=== PATIENT | male | born 1955 | race Caucasian/White ===

== ENCOUNTER → 2017-02-27 | Day surgery (SDC) | payer MEDICARE, OTHER ==
[~2017-02-27] MED LIST: BUPIVACAINE HCL PF 0.5% 30 ML VIAL ONE; CYCL5TAB PO; DIAZ10TA PO; DULC100C PO; HYDR8TAB PO; IOHEXOL 180 MG/ML 20 ML VIAL (for RAD DIAG) EPIDURAL ONE; LEVS0.123 PO; LIDOCAINE HCL 1% 30 ML VIAL INFIL ONE; PROM1SUP9 RECTAL; PROPOFOL 200 MG/20 ML AMP IV ONE; SINE25TA PO; SODIUM CHLORIDE 0.9% 10 ML VIAL ONE; TAMS5CAP PO; TRIAMCINOLONE ACETONIDE 40 MG/ML VIAL NERV BLOCK ONE; VITA100022 PO; VITA100036 PO; ZOFR8TAB PO
--- NOTE | 2017-02-28 13:12 | M6 ---
cc: LINDSEY STALEY M.D. DATE 02/27/2017 DATE OF 1955 PROCEDURE Celiac plexus block. History and physical was completed and signed. Consent was signed. Procedure site was marked. Medications were listed and reconciled. Pain score was recorded. Allergies were noted. Time out was taken. Fluoroscopy time was recorded where applicable. Sedation was administered or directed by Dr. Staley. The patient was given oxygen. The patient was monitored by a registered nurse. Total procedure time was greater than 15 minutes. PROCEDURE NOTE IV was started. Blood pressure cuff, pulse oximeter and EKG were applied. The patient was placed in the prone position on a Elias table, sedated with small amounts of propofol titrated to effect. Vital signs were monitored and remained stable throughout the procedure. The lumbar area was prepped with alcohol and 10% Betadine solution, draped with sterile drapes. Fluoroscopy was used both AP and lateral. The skin was infiltrated just lateral to the first lumbar vertebra approximately 5 cm on each side. Then a 20-gauge, 6-inch Chiba needle was advanced along the lateral border of the first lumbar vertebra on each side. As the needle approached the anterior vertebral border, Omnipaque dye was injected and seen to spread in a typical striated fashion in the psoas muscle. Then the needle was slowly advanced using fluoroscopic guidance and the [id number] technique. As the needle penetrated the anterior psoas fascia, Omnipaque dye was injected and seen to spread in a typical blotchy pattern in the retroperitoneal space. There was no washout to the injectable dye. At this point the patient was given 15 mL of Marcaine 0.375% and 40 mg of Kenalog on each side. Following this the patient was taken to the recovery room with stable vital signs, neurologically intact. W. MD RINA Blackman/LIBRA /9:11 AM /1:08 PM
== END | disposition home or self-care (01) ==
LOC: PHSDC 07:50
PROVIDERS: ATTEND Pain Medicine Interventional Pain Medicine
DX: R10.9 Unspecified abdominal pain (principal)
CPT/HCPCS: 64530; 99152; J3301; Q9965

== ENCOUNTER 2017-10-23 10:51 | Emergency (ER) | payer MEDICARE, OTHER ==
[~2017-10-23] VITALS: Ht 180.3 cm; Wt 65.0 kg
[~2017-10-23 10:51] MED LIST changes: -BUPIVACAINE HCL PF 0.5% 30 ML VIAL ONE; +CARB25TA9 PO; +CREON24 PO; -CYCL5TAB PO; -DULC100C PO; +GETGO ROLLING W1 MI1; -HYDR8TAB PO; -IOHEXOL 180 MG/ML 20 ML VIAL (for RAD DIAG) EPIDURAL ONE; -LEVS0.123 PO; -LIDOCAINE HCL 1% 30 ML VIAL INFIL ONE; +PANT20 PO; +PERI PO; -PROM1SUP9 RECTAL; -PROPOFOL 200 MG/20 ML AMP IV ONE; -SINE25TA PO; -SODIUM CHLORIDE 0.9% 10 ML VIAL ONE; +TAMS0.4C4 PO; -TAMS5CAP PO; -TRIAMCINOLONE ACETONIDE 40 MG/ML VIAL NERV BLOCK ONE; -VITA100022 PO; -VITA100036 PO; -ZOFR8TAB PO
[2017-10-23 10:59] VITALS: BP 132/79; PULSE 73; RESP 18; TEMP 98.2; O2SAT 99
--- NOTE | 2017-10-23 11:09 | PD ---
HPI Chief Complaint: Neuro Symptoms/ Deficits Time Seen by Provider: 10:55 Travel History International Travel<30 days: No Contact w/Intl Traveler<30days: No Traveled to known affect area: No History of Present Illness HPI Patient is a 62-year-old male with a history of recent hemorrhagic stroke status post craniotomy presents emergency department for evaluation of "the room STARTS spinning". Patient states that this is a new symptom for him denies any new weakness but he has his to bring him to the hospital. When I ask if he woke up with these symptoms as today he says possibly, he cannot really expand further on 1 his symptoms actually started he states possibly midmorning. Difficult historian. His arrives and states that he did indeed have craniotomy August 25, he still has some mild edema on his brain according to her. She states that he has a history of Parkinson's with dementia is nearing "the end" she states that he asked her to bring him to the hospital and she was applied stick on her his request. He is not on any blood thinners, she cannot expand further on when his symptoms actually started. He states that he has a tremor on his right upper extremity "at rest" but now it's "at rest" demonstrating some mild confusion. No chest pain no shortness of breath no abdominal pain nausea vomiting no head injury. PFSH Past Medical History Arthritis: No Asthma: No Autoimmune Disease: No Anxiety: Yes Depression: Yes Heart Rhythm Problems: No Cancer: No Cardiovascular Problems: No High Cholesterol: No Chemotherapy: No Chest Pain: No Congestive Heart Failure: No COPD: No Cerebrovascular Accident: Yes Diabetes: No Diminished Hearing: No Endocrine: No GERD: Yes Genitourinary: No Hepatitis: No Hiatal Hernia: No Immune Disorder: No Kidney Stones: No Musculoskeletal: No Neurologic: Yes Parkinson's Disease: Yes Psychiatric: No Reproductive: Yes Respiratory: No Migraines: No Pancreatitis: Yes (chronic since 2005/[facility] scope) Radiation Therapy: No Renal Failure: No Seizures: No Sickle Cell Disease: No Sleep Apnea: No Thyroid Disease: No Ulcer: No Past Surgical History Abdominal Surgery: Yes (RECENT PLEXUS NERVE BLOCK x10) AICD: No Arteriovenous Shunt: No Cardiac Surgery: No Ear Surgery: No Endocrine Surgery: No Eye Surgery: No Genitourinary Surgery: No Insulin Pump: No Joint Replacement: Yes (BILATERAL KNEES) Oral Surgery: Yes (TONSILLECTOMY) Pacemaker: No Thoracic Surgery: Yes (SPONT. PNEUMOTHORAX) Tonsillectomy: Yes Other Surgery: Yes (chest tubes spont pneumo on numerous occasions) Social History Alcohol Use: No Tobacco Use: No Substance Use: No Allergies-Medications (Allergen,Severity, Reaction): Coded Allergies: No Known Allergies (Verified Adverse Reaction, Unknown, 10/23/17) Reported Meds & Prescriptions Reported Meds & Active Scripts Active Gnp Senna Plus 8.6-50 mg (Sennosides-Docusate Sodium) 8.6 Mg-50 Mg Tab 1 Tab PO BID PRN Protonix (Pantoprazole Sodium) 20 Mg Tab 20 Mg PO DAILY Tamsulosin (Tamsulosin HCl) 0.4 Mg Cap 0.4 Mg PO HS Creon (Amylase/Lipase/Protease) 24,000-76,000-120,000 Units Cap 3 Cap PO TIDPC Carbidopa-Levodopa 25-100 Mg Tab 2 Tab PO QID 30 Days Walker Rolling/GetGo (Device) 1 Mis Mis Ea .ROUTE DIRECTED Reported Diazepam 10 Mg Tab 20 Mg PO HS Review of Systems Except as stated in HPI: all other systems reviewed are Neg Physical Exam Narrative GENERAL: Well-developed well-nourished, no obvious distress, exhibiting a tremor slow and non-clonic not representing a seizure in the right upper extremity. SKIN: Focused skin assessment warm/dry. Clean dry and intact surgical wound of the left intraparietal scalp, healing quite well. HEAD: Healing surgical wound as above otherwise atraumatic. Normocephalic. EYES: Pupils equal and round. No scleral icterus. No injection or drainage. ENT: No nasal bleeding or discharge. Mucous membranes pink and moist. NECK: Trachea midline. No JVD. CARDIOVASCULAR: Regular rate and rhythm. No murmur appreciated. RESPIRATORY: No accessory muscle use. Clear to auscultation. Breath sounds equal bilaterally. GASTROINTESTINAL: Abdomen soft, non-tender, nondistended. Hepatic and splenic margins not palpable. MUSCULOSKELETAL: No obvious deformities. No clubbing. No cyanosis. No edema. NEUROLOGICAL: Awake and alert mildly confused, cranial nerves II through XII are grossly intact. Patient states is difficult for him to open his eyes but he is able to do so and following with extraocular movements. Coarse tremor as described above in the right upper extremity. She states this is baseline. 4- 5 metalizing supervisor strength on the right patient states is baseline, 5 out of 5 strength in the remaining 3 extremities. PSYCHIATRIC: Appropriate mood and affect; insight and judgment normal. Data Data Last Documented VS Vital Signs Date Time Temp Pulse Resp B/P (MAP) Pulse Ox O2 Delivery O2 Flow Rate FiO2 10/23/17 14:47 10/23/17 13:30 68 16 100 Room Air 10/23/17 10:59 98.2 Orders Orders Electrocardiogram (10/23/17 11:02) Complete Blood Count With Diff (10/23/17 11:02) Comprehensive Metabolic Panel (10/23/17 11:02) Prothrombin Time / Inr (Pt) (10/23/17 11:02) Act Partial Throm Time (Ptt) (10/23/17 11:02) Troponin I (10/23/17 11:02) Urinalysis - C+S If Indicated (10/23/17 11:02) Ct Brain W/O Iv Contrast(Rout) (10/23/17 11:02) Blood Glucose (10/23/17 11:02) Ecg Monitoring (10/23/17 11:02) Iv Access Insert/Monitor (10/23/17 11:02) Oximetry (10/23/17 11:02) Sodium Chloride 0.9% Flush (Ns Flush) (10/23/17 11:15) Ondansetron Inj (Zofran Inj) (10/23/17 11:11) Ondansetron Inj (Zofran Inj) (10/23/17 12:45) Diphenhydramine Inj (Benadryl Inj) (10/23/17 13:15) Prochlorperazine Inj (Compazine Inj) (10/23/17 13:15) Ed Discharge Order (10/23/17 14:07) Labs Laboratory Tests Test 10/23/17 11:10 White Blood Count 7.7 TH/MM3 Red Blood Count 4.16 MIL/MM3 Hemoglobin 12.8 GM/DL Hematocrit 38.4 % Mean Corpuscular Volume 92.2 FL Mean Corpuscular Hemoglobin 30.8 PG Mean Corpuscular Hemoglobin Concent 33.4 % Red Cell Distribution Width 13.3 % Platelet Count 167 TH/MM3 Mean Platelet Volume 10.3 FL Neutrophils (%) (Auto) 79.1 % Lymphocytes (%) (Auto) 13.2 % Monocytes (%) (Auto) 5.7 % Eosinophils (%) (Auto) 1.7 % Basophils (%) (Auto) 0.3 % Neutrophils # (Auto) 6.1 TH/MM3 Lymphocytes # (Auto) 1.0 TH/MM3 Monocytes # (Auto) 0.4 TH/MM3 Eosinophils # (Auto) 0.1 TH/MM3 Basophils # (Auto) 0.0 TH/MM3 CBC Comment DIFF FINAL Differential Comment Prothrombin Time 10.7 SEC Prothromb Time International Ratio 1.1 RATIO Activated Partial Thromboplast Time 24.1 SEC Blood Urea Nitrogen 13 MG/DL Creatinine 0.87 MG/DL Random Glucose 97 MG/DL Total Protein 7.0 GM/DL Albumin 3.4 GM/DL Calcium Level 8.9 MG/DL Alkaline Phosphatase 49 U/L Aspartate Amino Transf (AST/SGOT) 13 U/L Alanine Aminotransferase (ALT/SGPT) LESS THAN 6 U/L Total Bilirubin 0.3 MG/DL Sodium Level 138 MEQ/L Potassium Level 3.9 MEQ/L Chloride Level 101 MEQ/L Carbon Dioxide Level 33.0 MEQ/L Anion Gap 4 MEQ/L Estimat Glomerular Filtration Rate 89 ML/MIN Troponin I LESS THAN 0.02 NG/ML MDM Medical Decision Making Medical Screen Exam Complete: Yes Emergency Medical Condition: Yes Differential Diagnosis dizziness, headache, postsurgical headache, intracranial hemorrhage, electrolyte abnormality, dehydration. Narrative Course Patient roomed in emergency department, history of Parkinson's disease and at neurologic baseline according to his , headache was treated Benadryl and Compazine, patient feeling better he is a in the emergency department would like to go home to follow-up with his neurologist. He is stable to do so this time, I did offer him admission to the hospital but at this time he would rather go home and follow up outpatient. Diagnosis Primary Impression: Headache Additional Impression: Dizziness Disposition: 01 DISCHARGE HOME Condition: Stable Cam Hernandez MD Oct 23, 2017 11:09
[2017-10-23] MEDS ORDERED: ONDANSETRON HCL 4 MG/2 ML VIAL ONE (11:11)
[2017-10-23 11:13] VITALS: O2SAT 98
[2017-10-23] MEDS ORDERED: SODIUM CHLORIDE 0.9% FLUSH 10 ML FLUSH IV FLUSH PRN (11:15)
[2017-10-23 11:42] LABS: AUTOMATED NEUTROPHIL # 6.1 TH/MM3 (1.8-7.7); BASOPHIL % 0.3 % (0.0-2.0); EOSINOPHIL # 0.1 TH/MM3 (0-0.4); EOSINOPHIL % 1.7 % (0.0-4.0); HEMATOCRIT 38.4 % (39.0-51.0); HEMOGLOBIN 12.8 GM/DL (13.0-17.0); LYMPH % 13.2 % (9.0-44.0); MEAN CELL VOLUME 92.2 FL (80.0-100.0); MEAN CORPUSCULAR HEMOGLOBIN 30.8 PG (27.0-34.0); MEAN CORPUSCULAR HGB CONC 33.4 % (32.0-36.0); MEAN PLATELET VOLUME 10.3 FL (7.0-11.0); MONO % 5.7 % (0.0-8.0); MONOCYTE # 0.4 TH/MM3 (0-0.9); NEUT % 79.1 % (16.0-70.0); PLATELET COUNT 167 TH/MM3 (150-450); RED BLOOD COUNT 4.16 MIL/MM3 (4.50-5.90); RED CELL DISTRIBUTION WIDTH 13.3 % (11.6-17.2); WHITE BLOOD COUNT 7.7 TH/MM3 (4.0-11.0)
[2017-10-23 11:50] LABS: INTERNATIONAL NORMALIZED RATIO 1.1 RATIO; PROTHROMBIN TIME - PATIENT 10.7 SEC (9.8-11.6)
[2017-10-23 11:59] LABS: ALBUMIN 3.4 GM/DL (3.4-5.0); AST (GOT) 13 U/L (15-37); BLOOD UREA NITROGEN 13 MG/DL (7-18); CALCIUM 8.9 MG/DL (8.5-10.1); CHLORIDE 101 MEQ/L (98-107); CREATININE 0.87 MG/DL (0.60-1.30); GLOMERULAR FILTRATION RATE 89 ML/MIN (>89); GLUCOSE,RANDOM 97 MG/DL (74-106); SODIUM (NA) 138 MEQ/L (136-145)
[2017-10-23 12:01] LABS: ALT (GPT) LESS THAN 6 U/L (12-78)
[2017-10-23 12:04] LABS: ALKALINE PHOSPHATASE 49 U/L (45-117); TOTAL BILIRUBIN ADULT 0.3 MG/DL (0.2-1.0); TROPONIN I LESS THAN 0.02 NG/ML (0.02-0.05)
--- NOTE | 2017-10-23 12:21 | RADRPT ---
EXAM DATE/TIME: 10/23/2017 11:44 [place] COMPARISON: No previous studies available for comparison. INDICATIONS : Altered mental status. RADIATION DOSE: 35.46 CTDIvol (mGy) MEDICAL HISTORY : Parkinson's. CVA. SURGICAL HISTORY : Craniotomy. ENCOUNTER: Initial ACUITY: 1 day PAIN SCALE: 0/10 LOCATION: cranial TECHNIQUE: Multiple contiguous axial images were obtained of the head. Using automated exposure control and adj ustment of the mA and/or kV according to patient size, radiation dose was kept as low as reasonably a chievable to obtain optimal diagnostic quality images. DICOM format image data is available electro nically for review and comparison. FINDINGS: CEREBRUM: The ventricles are normal for age. No evidence of midline shift, mass lesion, hemorrhage or acute in farction. No extra-axial fluid collections are seen. POSTERIOR FOSSA: The cerebellum and brainstem are intact. The 4th ventricle is midline. The cerebellopontine angle i s unremarkable. EXTRACRANIAL: The visualized portion of the orbits is intact. SKULL: The calvaria is intact. No evidence of skull fracture. Evidence for previous surgery left upper vul va region. Presumed sebaceous cyst left occipital region CONCLUSION: Negative for acute process. Leonardo Rodriguez MD FACR on October 23, 2017 at 12:19 Board Certified Radiologist. This report was verified electronically.
[2017-10-23] MEDS ORDERED: ONDANSETRON HCL 4 MG/2 ML VIAL IV PUSH ONE (12:45)
[2017-10-23] MEDS ORDERED: diphenhydrAMINE HCL 50 MG/ML VIAL IV PUSH ONE (13:15)
[2017-10-23] MEDS ORDERED: PROCHLORPERAZINE INJ 10 MG/2 ML VIAL IV PUSH ONE (13:15)
[2017-10-23 13:30] VITALS: BP 128/87; PULSE 68; RESP 16; O2SAT 100
--- NOTE | 2017-10-24 17:08 | EKG ---
Date Performed: 10/23/2017 Time Performed: 11:16:47 PTAGE: 62 years EKG: Sinus rhythm WITH OCCASIONAL SUPRAVENTRICULAR PREMATURE COMPLEXES BORDERLINE ECG NO PREVIOUS TRACING DOCTOR: Tracie Bowers Interpretating Date/Time 10/24/2017 17:08:01
== END 2017-10-23 14:55 | disposition home or self-care (01) ==
LOC: NEPC 10:51
DX: R51 Headache (principal); R42 Dizziness and giddiness; G20 Parkinson's disease; F02.80 Dementia in other diseases classified elsewhere, unspecified severity, without behavioral disturbance, psychotic disturbance, mood disturbance, and anxiety; F41.9 Anxiety disorder, unspecified; F32.9 Major depressive disorder, single episode, unspecified; K21.9 Gastro-esophageal reflux disease without esophagitis; K86.1 Other chronic pancreatitis; Z86.73 Personal history of transient ischemic attack (TIA), and cerebral infarction without residual deficits
CPT/HCPCS: 70450; 80053; 84484; 85025; 85610; 85730; 93005; 96374; 96375; 99285; J0780; J1200; J2405

== ENCOUNTER 2018-05-01 09:51 | Inpatient (IN) ==
--- NOTE | 2018-05-01 10:57 | ED ---
HPI General Chief Complaint: Psychiatric Symptoms Stated Complaint: psych eval/evac Time Seen by Provider: 05/01/18 10:37 Source: patient Mode of arrival: EMS Limitations: altered mental status History of Present Illness HPI Narrative: The patient is a 62-year-old male who presents to the emergency department via EMS as a Hook act from [facility] for aggressive behavior. The patient is not oriented to place, month, or year. He is oriented to name. The patient states that somebody try to take his backpack earlier today, he told him they cannot take the backpack and that the physician at the facility placed the worker who took his backpack on work release. The patient states he was then headed north when he somehow was apprehended. The patient is obviously delusional and unable to provide any insight into his current medical problems. I asked the patient [facility], he states it is because he has difficulty ambulating. He denies any current headache, chest pain, shortness breath, nausea, vomiting, or abdominal pain. However, patient is a somewhat limited historian. MD complaint: altered mental status Onset (ago): hour(s) Duration: constant Relieving factors: none Exacerbating factors: none Related Data Home Medications Medication Instructions Recorded Confirmed haloperidol lactate [Haldol] 5 mg IM Q4-8H PRN 05/01/18 05/01/18 hydromorphone [Dilaudid] 4 mg PO Q4-6H PRN MDD 4 05/01/18 05/01/18 lorazepam [Ativan] 1 mg PO BID 05/01/18 05/01/18 midazolam 4 mg PO 05/01/18 Allergies Allergy/AdvReac Type Severity Reaction Status Date / Time No Known Allergies Unknown Uncoded 10/23/17 10:58 Review of Systems ROS Unobtainable unobtainable due to mental condition Cardiovascular Denies chest pain Respiratory Denies dyspnea Gastrointestinal Denies abdominal pain, Denies nausea and Denies vomiting Neurologic Reports behavioral changes Psychiatric Reports confusion, Reports hallucinations, Denies homicidal ideation and Denies suicidal ideation PMFSH Medical History Medical History Colloid cyst of brain (Acute) Colloid cyst of brain (Acute) Failure to thrive (Acute) Hospice care patient (Acute) Pain, chronic (Acute) Pancreatitis, chronic (Acute) Parkinson's disease dementia (Acute) Recent urinary tract infection (Acute) Family History Family History Other Family history of cancer Family history of hypertension Social History Social History Substance History: No History of Abuse, Past History (History of alcohol abuse in past years) and Unable to Obtain Second Hand Smoke Exposure: No Smoking Status: Former smoker (Quit 30 years ago) Tobacco Type: Cigarettes Packs Per Day: 1 Cigarettes Per Day: 20.0 Years Smoked: 25 Pack-Years: 25.00 How Often Do You Have a Drink Containing Alcohol: Unable to Obtain Hx Recent Travel: No Recent Travel in [facility] within the Last 8 Weeks: No Recent Out of Country Travel within the Last 8 Weeks: No Exam Narrative Exam Narrative: GENERAL: Awake, alert, confused 62-year-old male who appears his stated age and is in no acute respiratory distress. Slightly cachectic build. SKIN: Focused skin assessment warm/dry. HEAD: Atraumatic. Normocephalic. EYES: No injection or drainage. ENT: No nasal bleeding or discharge. Mucous membranes pink and moist. NECK: Trachea midline. No JVD. CARDIOVASCULAR: Regular rate and rhythm. No murmur appreciated. RESPIRATORY: No accessory muscle use. Clear to auscultation. Breath sounds equal bilaterally. GASTROINTESTINAL: Abdomen soft, non-tender, nondistended. Hepatic and splenic margins not palpable. Genitourinary: Circumcised phallus. Burden catheter in place. MUSCULOSKELETAL: No obvious deformities. No clubbing. No cyanosis. No edema. NEUROLOGICAL: Awake and alert. No obvious cranial nerve deficits. Motor grossly within normal limits. Normal speech. Oriented to person but not month, place, or year. The patient stated it was 1999, he stated the president he denies states his Fabian Osorio. The patient stated the month was December. PSYCHIATRIC: Delusional. Course Initial Documented Vital Signs Temperature 99.1 F 05/01/18 10:34 Pulse Rate 66 05/01/18 10:34 Respiratory Rate 18 05/01/18 10:34 Blood Pressure 123/66 05/01/18 10:34 Last Documented Vital Signs Temperature 97.4 F L 05/02/18 06:27 Pulse Rate 61 05/02/18 06:27 Respiratory Rate 16 05/02/18 06:27 Blood Pressure 151/79 H 05/02/18 06:27 Pulse Oximetry 98 05/02/18 06:27 Medical Decision Making MDM Narrative Medical decision making narrative: Labs are drawn and sent. Cath UA was sent to lab. Psychiatric evaluation was ordered. The patient's CBC, CMP, TSH are unremarkable. The patient did walk out of his room, without clothing, hold his Burden catheter, looking for his backpack. The patient was then returned to his room, gowned once again, and a sitter was arranged. The patient is medically cleared to be evaluated by psychiatry. Disposition as per psych. Differential Diagnosis Differential Diagnosis: Differential diagnosis includes delusional disorder, delirium, hyponatremia, UTI, CVA, end of life care, medication reaction. Lab Data Lab results reviewed: Yes I reviewed the patient's lab results. Result diagrams: 05/01/18 10:13 05/01/18 10:13 Lab Results 05/01/18 05/01/18 05/01/18 Range/Units 10:13 10:13 11:10 WBC 6.3 (4.0-11.0) th/mm3 RBC 4.31 L (4.50-5.90) mil/mm3 Hgb 12.9 L (13.0-17.0) gm/dL Hct 39.1 (39.0-51.0) % MCV 90.7 (80.0-100.0) fL MCH 30.0 (27.0-34.0) pg MCHC 33.1 (32.0-36.0) % RDW 14.1 (11.6-17.2) % Plt Count 123 L (150-450) th/mm3 MPV 11.4 H (7.0-11.0) fL Neut % (Auto) 85.9 H (16.0-70.0) % Lymph % (Auto) 7.5 L (9.0-44.0) % [place] % (Auto) 5.9 (0.0-8.0) % Eos % (Auto) 0.4 (0.0-4.0) % Baso % (Auto) 0.3 (0.0-2.0) % Neut # (Auto) 5.4 (1.8-7.7) th/mm3 Lymph # (Auto) 0.5 L (1.0-4.8) th/mm3 [place] # (Auto) 0.4 (0.0-0.9) th/mm3 Eos # (Auto) 0.0 (0.0-0.4) th/mm3 Baso # (Auto) 0.0 (0.0-0.2) th/mm3 WBC Differential . Differential Comment Auto diff final Sodium 140 (136-145) meq/L Potassium 4.3 (3.5-5.1) meq/L Chloride 101 (98-107) meq/L Carbon Dioxide 31.6 (21.0-32.0) meq/L Anion Gap 7 (5-15) meq/L BUN 11 (7-18) mg/dL Creatinine 0.98 (0.60-1.30) mg/dL Estimated GFR 78 L (>89) mL/min Random Glucose 84 (74-106) mg/dL Calcium 9.2 (8.5-10.1) mg/dL Total Bilirubin 0.2 (0.2-1.0) mg/dL AST 43 H (15-37) U/L ALT 10 L (12-78) U/L Alkaline Phosphatase 47 (45-117) U/L Total Protein 7.3 (6.4-8.2) g/dL Albumin 4.0 (3.4-5.0) g/dL TSH 0.917 (0.358-3.740) uIU/mL Urine Color (Yellw/Straw) Urine Clarity (Clear) Urine pH (5.0-8.5) Ur Specific [place] (1.002-1.035) Urine Protein (Neg-Trace) mg/dL Urine Glucose (UA) (Negative) mg/dL Urine Ketones (Negative) mg/dL Urine Occult Blood (Negative) Urine Nitrate (Negative) Urine Bilirubin (Negative) Urine Urobilinogen (Less than 2) mg/dL Ur Leukocyte Esterase (Negative) Urine RBC (0-3) /hpf Urine WBC (0-5) /hpf Urine Opiates Screen Pos (Neg) Ur Barbiturates Screen Neg (Neg) Ur Amphetamines Screen Neg (Neg) U Benzodiazepines Scrn Pos (Neg) Urine Cocaine Screen Neg (Neg) U Cannabinoids Screen Neg (Neg) Serum Alcohol Less than 3 (0-5) mg/dL 05/01/18 Range/Units 11:10 WBC (4.0-11.0) th/mm3 RBC (4.50-5.90) mil/mm3 Hgb (13.0-17.0) gm/dL Hct (39.0-51.0) % MCV (80.0-100.0) fL MCH (27.0-34.0) pg MCHC (32.0-36.0) % RDW (11.6-17.2) % Plt Count (150-450) th/mm3 MPV (7.0-11.0) fL Neut % (Auto) (16.0-70.0) % Lymph % (Auto) (9.0-44.0) % [place] % (Auto) (0.0-8.0) % Eos % (Auto) (0.0-4.0) % Baso % (Auto) (0.0-2.0) % Neut # (Auto) (1.8-7.7) th/mm3 Lymph # (Auto) (1.0-4.8) th/mm3 [place] # (Auto) (0.0-0.9) th/mm3 Eos # (Auto) (0.0-0.4) th/mm3 Baso # (Auto) (0.0-0.2) th/mm3 WBC Differential Differential Comment Sodium (136-145) meq/L Potassium (3.5-5.1) meq/L Chloride (98-107) meq/L Carbon Dioxide (21.0-32.0) meq/L Anion Gap (5-15) meq/L BUN (7-18) mg/dL Creatinine (0.60-1.30) mg/dL Estimated GFR (>89) mL/min Random Glucose (74-106) mg/dL Calcium (8.5-10.1) mg/dL Total Bilirubin (0.2-1.0) mg/dL AST (15-37) U/L ALT (12-78) U/L Alkaline Phosphatase (45-117) U/L Total Protein (6.4-8.2) g/dL Albumin (3.4-5.0) g/dL TSH (0.358-3.740) uIU/mL Urine Color Yellow (Yellw/Straw) Urine Clarity Clear (Clear) Urine pH 7.0 (5.0-8.5) Ur Specific [place] 1.008 (1.002-1.035) Urine Protein Negative (Neg-Trace) mg/dL Urine Glucose (UA) Negative (Negative) mg/dL Urine Ketones Negative (Negative) mg/dL Urine Occult Blood Small H (Negative) Urine Nitrate Negative (Negative) Urine Bilirubin Negative (Negative) Urine Urobilinogen Less than 2 (Less than 2) mg/dL Ur Leukocyte Esterase Negative (Negative) Urine RBC 4 H (0-3) /hpf Urine WBC 3 (0-5) /hpf Urine Opiates Screen (Neg) Ur Barbiturates Screen (Neg) Ur Amphetamines Screen (Neg) U Benzodiazepines Scrn (Neg) Urine Cocaine Screen (Neg) U Cannabinoids Screen (Neg) Serum Alcohol (0-5) mg/dL Discharge Plan Discharge Disposition Patient Disposition: 01 Discharge Home Discharge Condition Condition: Stable Discharge Order Discharge Orders: Discharge Order (Routine); Ordered 05/02/18 Ordered By: Mitchel Ramirez Discharge Details Discharge Problem: Dementia due to Parkinson's disease with behavioral disturbance Physicians Team ED Provider: Mitchel Ramirez Primary Care Provider: Francisca Paige Attending Provider: Mandeep Vargas Other Providers: Jennifer Shah ; Meme Kessler Fernando B Discharge Interventions Interventions: ED Discharge Assessment Last Done: 05/02/18 07:35 Status ED Status: Left Department Discharge Information Discharge Date/Time: 05/02/18 07:36
[2018-05-01 11:03] LABS: Baso % (Auto) 0.3 % (0.0-2.0); Eos % (Auto) 0.4 % (0.0-4.0); Hematocrit 39.1 % (39.0-51.0); Hemoglobin 12.9 gm/dL (13.0-17.0); Lymph # (Auto) 0.5 th/mm3 (1.0-4.8); Lymph % (Auto) 7.5 % (9.0-44.0); Mean Corpuscular HGB Conc 33.1 % (32.0-36.0); Mean Corpuscular Volume 90.7 fL (80.0-100.0); Mean Platelet Volume 11.4 fL (7.0-11.0); Mono # (Auto) 0.4 th/mm3 (0.0-0.9); Mono % (Auto) 5.9 % (0.0-8.0); Neut # (Auto) 5.4 th/mm3 (1.8-7.7); Neut % (Auto) 85.9 % (16.0-70.0); Platelet Count 123 th/mm3 (150-450); Red Blood Count 4.31 mil/mm3 (4.50-5.90); Red Cell Distribution Width 14.1 % (11.6-17.2); White Blood Count 6.3 th/mm3 (4.0-11.0)
[2018-05-01 11:29] LABS: Anion Gap 7 meq/L (5-15); Aspartate Aminotransferase 43 U/L (15-37); Blood Urea Nitrogen 11 mg/dL (7-18); Calcium 9.2 mg/dL (8.5-10.1); Carbon Dioxide 31.6 meq/L (21.0-32.0); Chloride 101 meq/L (98-107); Glomerular Filtration Rate 78 mL/min (>89); Glucose,Random 84 mg/dL (74-106); Potassium 4.3 meq/L (3.5-5.1); Sodium 140 meq/L (136-145)
[2018-05-01 11:31] LABS: Alanine Aminotransferase 10 U/L (12-78)
[2018-05-01 11:40] LABS: Alkaline Phosphatase 47 U/L (45-117); Thyroid Stimulating Hormone 0.917 uIU/mL (0.358-3.740); Total Protein 7.3 g/dL (6.4-8.2)
[2018-05-01 12:14] LABS: Amphetamine Screen,Urine Neg (Neg); Barbiturate Screen,Urine Neg (Neg); Cannabinoid Screen,Urine Neg (Neg); Cocaine Screen,Urine Neg (Neg); Opiate Screen,Urine Pos (Neg)
[2018-05-01 12:21] LABS: Bilirubin,Urine Negative (Negative); Clarity,Urine Clear (Clear); Color,Urine Yellow (Yellw/Straw); Glucose,Urine (UA) Negative (Negative); Leukocyte Esterase,Urine Negative (Negative); Nitrite,Urine Negative (Negative); Specific Gravity,Urine 1.008 (1.002-1.035)
[2018-05-01] MEDS ORDERED: Haloperidol Inj 5 MG/ML Ampul IM ONE (14:32)
--- NOTE | 2018-05-01 17:01 | P.CONPSY ---
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 [place] II.: Deferred [place] III.: Parkinson's disease, chronic pancreatitis, Parkinson's dementia History of Present Illness Service: ER Primary Care Provider: Francisca Paige History of Present Illness: The patient is a 62-year-old man, , domiciled in hospice center , with psychiatric history of dementia secondary to Parkinson's disease, no previous psychiatric hospitalizations, no previous suicide attempts, no history of substance or alcohol abuse, medical history of Parkinson's disease, chronic pancreatitis, who presents to the emergency department via EMS as a Hook act from [facility] for aggressive behavior. The patient is not oriented to place, month, or year. He is oriented to name. The patient states that somebody try to take his backpack earlier today, he told him they cannot take the backpack and that the physician at the facility placed the worker who took his backpack on work release. The patient states he was then headed north when he somehow was apprehended. The patient is obviously delusional and unable to provide any insight into his current medical problems. I [facility] the [facility], he states it is because he has difficulty ambulating. He denies any current headache, chest pain, shortness breath, nausea, vomiting, or abdominal pain. However, patient is a somewhat limited historian. Patient was consulted to psychiatry given his level of psychosis and agitation. EMR reviewed. Case discussed with ER doctor , also discussed with Dr. Callaway in palliative care. Also collateral information from his was contacted by me personally. On the psychiatric evaluation the patient is restrained in 4 points. Quite agitated, very hyperactive and hyperalert. The patient is talkative, but very tangential with Cole loosening of associations, persistent confabulatory statements to answer my questions. Oriented to person, but disoriented in time and place. His was able to tell me that this is a out of character presentation for the patient. He has been demented for about 4 years as a consequence of Parkinson' s disease, but never had been so agitated and aggressive. She is clear that the patient is hospice, DNR/DNI, and just comfort care, at the same time she understand the patient has to be medicated for his agitation and aggressive behavior and she agrees with it. [facility] - History History Provided By: Patient - Medical History Medical History: Medical History (Last Updated 05/01/18 @ 17:01 by López Sood MD) Failure to thrive Hospice care patient Pancreatitis, chronic Parkinson's disease dementia - Tobacco History Second Hand Smoke Exposure: No Tobacco Use In Past 30 Days: No Smoking Status: Cognitive impairment - Alcohol History How Often Do You Have a Drink Containing Alcohol: Never - Substance Use History Substance History: No History of Abuse - Travel History Recent Travel in the [place] Within the Last 8 Weeks: No Recent Travel Out of the Country Within the Last 8 Weeks: No - Immunization History Tetanus Immunization: Unsure Hx Influenza Vaccine This Season: Unable to Assess Medications and Allergies Active Medications: Active Medications Olanzapine (Zyprexa Inj) 10 mg IM Q4HR [facility] Olanzapine (Zyprexa Inj) 10 mg IM ONCE ONE Stop: 05/01/18 16:45 Quetiapine Fumarate (Seroquel) 100 mg PO BID [facility] Allergies Allergy/AdvReac Type Severity Reaction Status Date / Time No Known Allergies Unknown Uncoded 10/23/17 10:58 Home Medications Medication Instructions Recorded Confirmed Type haloperidol lactate [Haldol] 5 mg IM Q4-8H PRN 05/01/18 05/01/18 History hydromorphone [Dilaudid] 4 mg PO Q4-6H PRN MDD 4 05/01/18 05/01/18 History lorazepam [Ativan] 1 mg PO BID 05/01/18 05/01/18 History midazolam 4 mg PO 05/01/18 History Exam Vital signs: Vital Signs 05/01/18 10:34 05/01/18 13:52 05/01/18 15:56 Temperature 99.1 F 98.5 F 98.4 F Pulse Rate 66 64 98 H Respiratory Rate 18 Blood Pressure 123/66 131/68 132/68 Pulse Oximetry 100 100 Intake & Output 04/30/18 05/01/18 05/01/18 18:59 06:59 18:59 Weight 72.575 kg Mental Status Examination Appearance: Disheveled Consciousness: Clouded Orientation: Person Speech: Pressured, Rapid, Incoherent Language: Adequate Fund of Knowledge: Inadequate Attention and Concentration: Inadequate Memory: Impaired Mood: Angry, Oppositional Affect: Irritable Thought Process & Associations: Loose associations, Disorganized Thought Content: Depersonalization, Derealization Delusion Type: Bizarre Suicidal Ideation: No Suicidal Plan: No Suicidal Intention: No Homicidal Ideation: No Homicidal Plan: No Homicidal Intention: No Insight: Poor Judgment: Poor Assessment and Plan - Assessment (1) Unspecified psychosis Code(s): F29 - Unspecified psychosis not due to a substance or known physiological condition Status: Acute - Plan Plan: Estimated LOS: [] days On psychiatric evaluation the patient presents quite agitated, hyperactive, hyper alert, with prominent confabulations, disorganized and tangential speech, disoriented, with marked fluctuation of consciousness and attention. Patient is restrained in 4 points. Has been given multiple doses of psychotropics with very poor results to the moment. The patient has psychiatric history of dementia secondary to Parkinson's disease, but no previous psychiatric hospitalizations, no previous suicide attempts, the patient does not have history of alcohol or drug use. He is in hospice and just comfort care due to his Parkinson's dementia, Parkinson's disease and chronic prostatitis. The patient has showed aggressive behavior in the hospital center and the ER. Current presentation seems to be related with delirium due to underlying medical conditions. He has been treated for UTI recently, he has a permanent catheter in place. The patient also is a medication for Parkinson's disease, carbidopa levodopa, which can be the motor of psychosis. Patient would be admitted in med psych unit for stabilization. We will start Seroquel 100 mg twice daily for behavioral dysregulation. Will order olanzapine 10 mg IM now. Olanzapine 10 mg every 8 hours as needed aggressive behavior and agitation. Try to avoid benzodiazepines due to a potential paradoxical reaction. Will consult palliative care, consult neurology to help with potential neurological causes of delirium and also with treatment of Parkinson's disease. I have discussed this case extensively with Dr. Callaway palliative care and also with the ER physician. Patient's is in agreement with my plan. Justification for Continued Inpatient Stay: Patient is acutely psychotic (1) Unspecified psychosis Qualifiers: Psychosis type: brief psychotic disorder Qualified Code(s): F23 - Brief psychotic disorder
[2018-05-01] MEDS: QUEtiapine 100 MG Tablet PO SCH (21:19)
--- NOTE | 2018-05-02 10:04 | MB ---
cc: Jennifer Shah MD DATE: 05/02/2018 REASON FOR CONSULTATION: History of Parkinson's and dementia. History is taken solely from the chart. The patient is in 4-point restraints, sedated, nonverbal. HISTORY OF PRESENT ILLNESS: This 62-year-old man, , lives now in the hospice center with a history of dementia from his Parkinson's. No previous psychiatric hospitalizations or suicide attempts. Apparently, he was Hook Acted from the hospice center for aggressive behavior. At baseline, he is not oriented to place, month or year, just to his name. However, today he even unable to tell me his name. Looking at the psychiatric notes, he was agitated and psychotic. Apparently, his states that he is in hospice. He is DNR/DNI and just comfort care. This is per chart notes. More history is unavailable, what medicines he is on, but I believe he at some point it is stated that he was on Sinemet. The dosing is unknown. He has a history, as stated, of Parkinson's with dementia, pancreatitis, which is chronic, and failure to thrive. SOCIAL HISTORY: Now lives in a hospice. Does not smoke or drink. ACTIVE MEDICATIONS IN THE HOSPITAL: Zyprexa 10 mg q. 4 hours scheduled and Seroquel 100 mg b.i.d. PHYSICAL EXAMINATION: GENERAL: An elderly man lying in bed in 4-point restraints in no distress. VITAL SIGNS: His temperature is 97.4, pulse 61, respiratory rate 16, blood pressure 151/79, saturating at 98% on room air. NEUROLOGIC: He is somnolent. Opens his eyes briefly, arousable, mumbles, cannot tell me his name. His pupils are reactive. His face looks fairly symmetrical. He seems to withdraw everything equally, but does not follow commands for formal strength testing. 1+ DTRs. His toes, he withdraws. Cerebellar cannot be done. Gait cannot be assessed. Sensory seems normal since he does withdraw. There is no cogwheeling or rigidity. His tone was entirely normal. LABORATORY DATA: Hemoglobin is 12.9, platelets 123,000. Chemistries: GFR is 78, AST 43, ALT 10. Urine: Small blood, 4 RBCs. Tox screen was positive for opiates and for benzos. IMAGING: No imaging to review. IMPRESSION: A 62-year-old man with psychosis, likely from his dementia with a history of Parkinson's. PLAN: At this point in time, I would recommend continuing the Seroquel, possibly go up on it and try to limit the olanzapine as it could make his Parkinson's worse. If he is on Sinemet, we could restart his current dose or just use it p.r.n. if he becomes severely bradykinetic, use a dose of 25/100 up to 3 times a day as needed. Certainly if indicated, I can go ahead and order an EEG; however, at this point in time, no other recommendations. Continue current care per psychiatry. Please call me with any questions or concerns. Jennifer Shah MD DF/DL , 09:39 AM , 10:03 AM
--- NOTE | 2018-05-02 11:24 | P.CONPAL ---
Consult Service: Palliative Care Requesting Physician: Tatianna Barrientos Reason for Consult: a. To assist with evaluation and management of symptoms including: Agitation, combativeness, pain b. To assist medical decision maker(s) with: better understanding of current medical conditions; weighing benefits/burdens of medical treatment options; making medical treatment decisions. Primary Care Provider: Francisca Paige History of Present Illness History of Present Illness: This 62-year-old male, with a long history of chronic pain (chronic pancreatitis ), as well as worsening dementia and Parkinson's disease the past 3 or 4 years, alcoholism, anxiety, and depression, has been declining over the past several months. The patient's reports that he has had worsening confusion and forgetfulness, more erratic behaviors at home, has lost 10 pounds over the past 3 months, and has had worsening pain. He was formally admitted to [facility] on 04/10/18, and had a brief stay in the [facility]ospice Care Center at that time for pain management. He was at home again, but the past week or 2 has had worsening and more troublesome agitation and combativeness, threatening his , and taking a swing at visitors. He was increasingly weak, able to take only a couple steps, and he was admitted to the [facility] again on 04/29/18 because of agitation. Psychotropic meds were tried, but the patient's agitation did not seem to improve, and on 05/01/18 he became more combative, was trying to injure hospice staff members, and he was brought to the hospital under a Hook Act. It is noted that he has been on oral opiates for more than 10 years for his chronic pancreatitis and chronic pain, and for the past few years has been on hydromorphone 4 mg tablets every day. His pain is abdominal and lower back, and is constant, not positional, not related to eating. In the emergency department here, findings included: * Mumbling, combative, confused, aggressive, delusional * Temp 99.1, pulse 66, respirations 18, blood pressure 123/66 * White count 6.3, hemoglobin 12.9 * Sodium 140, creatinine 0.98, albumin 4.0 * AST 43, ALT 10 * Urinalysis without evidence of infection * Urine drug screen positive for the expected opiates and benzos The patient was admitted to the medical/psychiatry floor, and has been in four- point restraints since arrival at the emergency department. He has received Seroquel and olanzapine. At the time I am seeing him, he is lethargic, mumbling , does not follow commands. Palliative Care was consulted to assist with symptom management, and to enter into discussions with the patient's regarding his illnesses, the rapid progression/worsening, the prognosis, and the benefits and burdens of the various treatment choices. Function/Cognitive Trajectory: The patient has been declining for a couple years, but much more rapidly the last 2 or 3 months, with worsening weakness, weight loss, confusion, disorientation, and agitation. He was only able to take a couple steps at home now, and he was always confused and disoriented. Review of Systems other (Obtained from staff and and records) Constitutional: Reports anorexia, Reports fatigue, Reports weight loss Eyes: Denies discharge Ears, Nose, Mouth, and Throat: Denies hoarseness, Denies nosebleed Cardiovascular: Denies chest pain, Denies fast heart rate Respiratory: Denies cough, Denies shortness of breath with activity Gastrointestinal: Reports constipation (Uses enemas as needed), Denies black, tarry stools, Denies bright, red blood in stools Genitourinary: Reports difficulty urinating (Chronic Burden for a month), Reports urinary frequency (Recent UTI, treated), Denies blood in urine Musculoskeletal: Reports back pain (Related to his pancreatitis) Skin/Breast: Denies non-healing lesions Neurologic: Reports confusion (Dementia for a couple years), Reports memory loss , Denies convulsions Psychiatric: Reports anxiety, Reports behavioral changes, Reports confusion, Reports depression, Reports difficulty concentrating Endocrine: Denies increased urination Hematologic/Lymphatic: Denies easy bleeding Allergic/Immunologic: Denies hives PMFSH - History History Provided By: Family Member, Medical Record (Including hospice records) - Medical History Medical History: Medical History (Last Updated 05/02/18 @ 12:17 by Meme Kessler MD) Colloid cyst of brain (Acute) Colloid cyst of brain Failure to thrive Hospice care patient Pain, chronic Pancreatitis, chronic Parkinson's disease dementia Recent urinary tract infection - Family History Family History: Family History (Last Updated 05/02/18 @ 11:38 by Meme Kessler MD) Other Family history of cancer Family history of hypertension - Tobacco History Second Hand Smoke Exposure: No Tobacco Use In Past 30 Days: No Smoking Status: Former smoker (Quit 30 years ago) Tobacco Type: Cigarettes Packs Per Day: 1 Years Smoked: 25 - Alcohol History How Often Do You Have a Drink Containing Alcohol: Unable to Obtain - Substance Use History Substance History: No History of Abuse, Past History (History of alcohol abuse in past years), Unable to Obtain - Travel History History of Recent Travel: No Recent Travel in the [place] Within the Last 8 Weeks: No Recent Travel Out of the Country Within the Last 8 Weeks: No - Immunization History Tetanus Immunization: Unsure Hx Influenza Vaccine This Season: Unable to Assess Medications and Allergies Active Medications: Active Medications Olanzapine (Zyprexa Inj) 10 mg IM Q4HR [facility] Last Admin: 05/02/18 03:23 Dose: Not Given Quetiapine Fumarate (Seroquel) 100 mg PO BID [facility] Last Admin: 05/01/18 21:19 Dose: Not Given Allergies Allergy/AdvReac Type Severity Reaction Status Date / Time No Known Allergies Unknown Uncoded 10/23/17 10:58 Home Medications Medication Instructions Recorded Confirmed Type haloperidol lactate [Haldol] 5 mg IM Q4-8H PRN 05/01/18 05/01/18 History hydromorphone [Dilaudid] 4 mg PO Q4-6H PRN MDD 4 05/01/18 05/01/18 History lorazepam [Ativan] 1 mg PO BID 05/01/18 05/01/18 History midazolam 4 mg PO 05/01/18 History Advance Directives Advance Directives Date on File: 04/11/18 (DNR, hospice) Living Will: No Health Care Surrogate Name and Number: is healthcare proxy decision-maker Power of Supply Chain Specialist: No Today's verbally stated goals: Patient is unable to engage in discussion, as he lacks orientation, insight, and judgment. Family/friends goals: The patient's Kori wants the focus to remain on comfort only. She definitely does not want him to be agitated or combative, and understands that the medication required to control his agitation and to keep him safe may contribute to his recent rapid decline that likely will continue. If his symptoms can be managed and he can get back to the [facility]ospice Care Center, she would prefer that. Ethical and Legal Issues: The patient cannot make his own decisions. He lacks orientation, insight, and judgment, and the decision-making at this point falls to his healthcare proxy Kori. Physical Exam Vital Signs: Vital Signs - 24 hr 05/01/18 13:52 05/01/18 15:56 05/01/18 21:03 Temperature 98.5 F 98.4 F 97.6 F Pulse Rate 64 98 H 47 L Respiratory Rate 18 18 20 Blood Pressure 131/68 132/68 147/74 H Pulse Oximetry 100 100 99 05/02/18 06:27 Temperature 97.4 F L Pulse Rate 61 Respiratory Rate 16 Blood Pressure 151/79 H Pulse Oximetry 98 I&O: Intake & Output 04/30/18 05/01/18 05/02/18 05/03/18 06:59 06:59 06:59 06:59 Intake Total 340 / 340 Balance 340 / 340 Weight 61.32 kg Physical Exam: CONSTITUTIONAL/GENERAL: This is a thin, mumbling patient, in the psychiatric unit, in four-point restraints. TUBES/LINES/DRAINS: Four-point restraints SKIN: No jaundice, rashes, or lesions. Ecchymoses on upper extremities. No wounds seen anteriorly. Skin temperature appropriate. Not diaphoretic. HEAD: Atraumatic. Normocephalic. EYES: Pupils equal and round and reactive. No scleral icterus. No injection or drainage. Fundi not examined. ENT: Hearing grossly normal. Nose without bleeding or purulent drainage. T NECK: Trachea midline. Supple, nontender. No palpable thyroid enlargement or nodularity. CARDIOVASCULAR: Regular rate and rhythm without murmurs, gallops, or rubs. No JVD. Peripheral pulses symmetric. RESPIRATORY/CHEST: Symmetric, unlabored respirations. Clear to auscultation. Breath sounds equal bilaterally. No wheezes, rales, or rhonchi. GASTROINTESTINAL: Abdomen soft, non-tender, nondistended. No hepato-splenomegaly , or palpable masses. No guarding. Bowel sounds present. GENITOURINARY: Without palpable bladder distension. Burden catheter in place. MUSCULOSKELETAL: Extremities without clubbing, cyanosis, or edema. No joint tenderness or effusion noted. No calf tenderness. No mottling or clubbing. LYMPHATICS: No palpable cervical or supraclavicular adenopathy. NEUROLOGICAL: Restless, somewhat agitated, even in the four-point restraints. Does not follow commands. PSYCHIATRIC: Restlessness, agitation Diagnostic Tests Laboratory: Laboratory Results - last 72 hr 05/01/18 05/01/18 05/01/18 10:13 10:13 11:10 WBC 6.3 RBC 4.31 L Hgb 12.9 L Hct 39.1 MCV 90.7 MCH 30.0 MCHC 33.1 RDW 14.1 Plt Count 123 L MPV 11.4 H Neut % (Auto) 85.9 H Lymph % (Auto) 7.5 L [place] % (Auto) 5.9 Eos % (Auto) 0.4 Baso % (Auto) 0.3 Neut # (Auto) 5.4 Lymph # (Auto) 0.5 L [place] # (Auto) 0.4 Eos # (Auto) 0.0 Baso # (Auto) 0.0 WBC Differential . Differential Comment Auto diff final Sodium 140 Potassium 4.3 Chloride 101 Carbon Dioxide 31.6 Anion Gap 7 BUN 11 Creatinine 0.98 Estimated GFR 78 L Random Glucose 84 Calcium 9.2 Total Bilirubin 0.2 AST 43 H ALT 10 L Alkaline Phosphatase 47 Total Protein 7.3 Albumin 4.0 TSH 0.917 Urine Color Urine Clarity Urine pH Ur Specific [place] Urine Protein Urine Glucose (UA) Urine Ketones Urine Occult Blood Urine Nitrate Urine Bilirubin Urine Urobilinogen Ur Leukocyte Esterase Urine RBC Urine WBC Urine Opiates Screen Pos Ur Barbiturates Screen Neg Ur Amphetamines Screen Neg U Benzodiazepines Scrn Pos Urine Cocaine Screen Neg U Cannabinoids Screen Neg Serum Alcohol Less than 3 05/01/18 11:10 WBC RBC Hgb Hct MCV MCH MCHC RDW Plt Count MPV Neut % (Auto) Lymph % (Auto) [place] % (Auto) Eos % (Auto) Baso % (Auto) Neut # (Auto) Lymph # (Auto) [place] # (Auto) Eos # (Auto) Baso # (Auto) WBC Differential Differential Comment Sodium Potassium Chloride Carbon Dioxide Anion Gap BUN Creatinine Estimated GFR Random Glucose Calcium Total Bilirubin AST ALT Alkaline Phosphatase Total Protein Albumin TSH Urine Color Yellow Urine Clarity Clear Urine pH 7.0 Ur Specific [place] 1.008 Urine Protein Negative Urine Glucose (UA) Negative Urine Ketones Negative Urine Occult Blood Small H Urine Nitrate Negative Urine Bilirubin Negative Urine Urobilinogen Less than 2 Ur Leukocyte Esterase Negative Urine RBC 4 H Urine WBC 3 Urine Opiates Screen Ur Barbiturates Screen Ur Amphetamines Screen U Benzodiazepines Scrn Urine Cocaine Screen U Cannabinoids Screen Serum Alcohol Result Diagrams: 05/01/18 10:13 05/01/18 10:13 Patient/Family Conference Present at Family Conference: Pari Sheikh Family Conference Time: 38 Family Conference Location: Telephone Issues Discussed: * Palliative care role, purpose, approach * Hospice care role, purpose, approach * Additional medical, psychosocial, and spiritual history * Patients general health, functional status, and cognitive changes in the months leading up to the current hospitalization * Patient/family understanding of the current medical problems * Patient/family understanding of prognosis * Patients goals of care as best understood from advance directives and/or conversations and/or values * Current medical treatment options and benefits/burdens of those options * Likely scenarios comparing ongoing aggressive care with a transition to comfort measures only * Questions answered to the best of my ability * Palliative care contact information provided Assessment and Plan - Disease Oriented Problem List (1) Unspecified psychosis Comment: [place] Act, history of dementia (2) Chronic pain Comment: On hydromorphone 4 mg tablets for several years (3) Chronic prescription opiate use (4) Chronic indwelling Burden catheter (5) Chronic pancreatitis (6) Anxiety (7) Depressed Pertinent Non-Medical Issues: Psychosocial: Spiritual: Legal: Ethical issues impacting care: Important Contacts: : Kori Draper [phone] Prognosis: The patient has been declining rapidly the last couple months, he remains cachectic, losing weight, worsening signs of dementia and failure to thrive. I believe he is terminal, and remains appropriate for hospice services. Code Status: No Code DNR Plan: * DO NOT RESUSCITATE * DECISION-MAKING: The patient lacks capacity for decision-making, and he will not regain that capacity. His Kori is the decision-making proxy. * GOALS: The patient's Kori wants the focus to stay on comfort only. She does not want him agitated and combative, and wants to keep him safe. She wants to continue hospice services, DNR status, and "whatever medicine it takes " to stop the agitation and combativeness. She prefers that he has enough medicine to control all the symptoms, even if it means he is lethargic and that his recent rapid decline will continue on to . She is hoping he can get back to the Hospice Care Center in the upcoming days. * SYMPTOMS: The patient has received Seroquel and olanzapine here. My recommendations would be advancing the Seroquel dose as needed. Dr. Shah has advised that the olanzapine may exacerbate Parkinson's symptoms. In addition, this patient has been on opiates for at least 10 years, and I believe he should be continued on some of his hydromorphone, at least 4 mg every 8 hours as a baseline dose. * Palliative Care will continue to follow the patient during this hospitalization. Appreciation Thank you for the opportunity to participate in the care of Indra Draper JR.
[2018-05-02] MEDS ORDERED: Haloperidol Inj 5 MG/ML Ampul IM PRN (14:32)
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
[2018-05-02] MEDS: LORazepam 1 MG Tablet PO SCH (20:45)
[2018-05-02] MEDS: QUEtiapine 100 MG Tablet PO SCH (20:45)
[2018-05-03] MEDS: QUEtiapine 100 MG Tablet PO SCH ×3 (08:10→21:42)
[2018-05-03] MEDS: LORazepam 1 MG Tablet PO SCH ×3 (08:42→21:42)
--- NOTE | 2018-05-03 16:17 | P.PNPSY ---
Subjective Remarks: Patient seen in his room with sitter, patient somewhat more alert today than yesterday continues with his eyes basically closed though with mumbled responses that are times somewhat confusing but more goal oriented. He continues to fuss with himself retreating towards his genitals and his Burden catheter. It is always been no significant behavioral problems. Review of Systems All other systems reviewed negative except as stated in HPI Mental Status Examination Appearance: Disheveled Consciousness: Clouded Orientation: Person Motor Activity: Other (Patient in bed) Speech: Pressured, Rapid, Incoherent Language: Adequate Fund of Knowledge: Inadequate Attention and Concentration: Inadequate Memory: Impaired Mood: Angry, Oppositional Affect: Irritable Thought Process & Associations: Loose associations, Disorganized Thought Content: Depersonalization, Derealization Delusion Type: Bizarre Suicidal Ideation: No Suicidal Plan: No Suicidal Intention: No Homicidal Ideation: No Homicidal Plan: No Homicidal Intention: No Insight: Poor Judgment: Poor Assessment and Plan - Assessment (1) Unspecified psychosis Code(s): F29 - Unspecified psychosis not due to a substance or known physiological condition Status: Acute (2) Dementia due to Parkinson's disease with behavioral disturbance Code(s): G20 - Parkinson's disease; F02.81 - Dementia in other diseases classified elsewhere with behavioral disturbance Status: Acute - Plan Plan: Patient remains demented and confused the low significant behavioral problems compliant medication for now continue treatment Justification for Continued Inpatient Stay: At this time patient would decompensate a place to a lower level of care Discharge Planning: To be determined Request Healthcare Surrogate/Guardian Advocate?: Yes (1) Unspecified psychosis Qualifiers: Psychosis type: brief psychotic disorder Qualified Code(s): F23 - Brief psychotic disorder
--- NOTE | 2018-05-04 13:18 | P.PNPAL ---
Reason for Visit Reason for visit: a. To assist with evaluation and management of symptoms including: Agitation, combativeness, pain b. To assist medical decision maker(s) with: better understanding of current medical conditions; weighing benefits/burdens of medical treatment options; making medical treatment decisions. Subjective Subjective/Interval History: INTERVAL NOTE: The patient is less lethargic today, he mumbles a few words. He remains confused, disoriented. He is no longer in restraints, and apparently is less combative now. Advance Directives Advance Directives Date on File: 04/11/18 (DNR, hospice) Health Care Surrogate Name and Number: is healthcare proxy decision-maker Objective Vital Signs: Vital Signs 05/03/18 19:07 05/04/18 06:10 Temperature 98.7 F 98.4 F Pulse Rate 69 85 Respiratory Rate 18 16 Blood Pressure 126/68 122/60 Pulse Oximetry 96 96 Intake & Output 05/03/18 05/04/18 05/04/18 18:59 06:59 18:59 Intake Total 300 / 300 120 / 120 0 / 0 Output Total 400 / 400 Balance 300 / 300 -280 / -280 0 / 0 Intake: Oral 300 / 300 120 / 120 0 / 0 Output: Urine 400 / 400 Physical Exam: CONSTITUTIONAL/GENERAL: This is a thin, weak patient, in the psychiatric unit CARDIOVASCULAR: Regular rate and rhythm without murmurs, gallops, or rubs. No JVD. Peripheral pulses symmetric. RESPIRATORY/CHEST: Symmetric, unlabored respirations. Clear to auscultation. Breath sounds equal bilaterally. No wheezes, rales, or rhonchi. GASTROINTESTINAL: Abdomen soft, non-tender, nondistended. No hepato-splenomegaly , or palpable masses. No guarding. Bowel sounds present. NEUROLOGICAL: Awake but mildly lethargic, not combative at this time, confused PSYCHIATRIC: Restlessness, agitation seems to have resolved Diagnostic Tests Result Diagrams: 05/01/18 10:13 05/01/18 10:13 Assessment and Plan - Disease Oriented Problem List (1) Unspecified psychosis Comment: [employer], history of dementia (2) Chronic pain Comment: On hydromorphone 4 mg tablets for several years (3) Chronic prescription opiate use (4) Chronic indwelling Burden catheter (5) Chronic pancreatitis (6) Anxiety (7) Depressed Pertinent Non-Medical Issues: Psychosocial: , lives with Spiritual: Legal: Patient lacks capacity for decision-making, is decision-making proxy Ethical issues impacting care: None Important Contacts: : Kori Draper [phone] Prognosis: The patient has been declining rapidly the last couple months, he remains cachectic, losing weight, worsening signs of dementia and failure to thrive. I believe he is terminal, and remains appropriate for hospice services. Code Status: No Code DNR Plan: * DO NOT RESUSCITATE * DECISION-MAKING: The patient lacks capacity for decision-making, and he will not regain that capacity. His Kori is the decision-making proxy. * GOALS: The patient's Kori wants the focus to stay on comfort only. She does not want him agitated and combative, and wants to keep him safe. She wants to continue hospice services, DNR status, and "whatever medicine it takes " to stop the agitation and combativeness. She prefers that he has enough medicine to control all the symptoms, even if it means he is lethargic and that his recent rapid decline will continue on to . She is hoping he can get [facility] in the upcoming days. * SYMPTOMS: The patient has received Seroquel and olanzapine here. My recommendations would be advancing the Seroquel dose as needed. Dr. Shah has advised that the olanzapine may exacerbate Parkinson's symptoms. In addition, this patient has been on opiates for at least 10 years. * Palliative Care will continue to follow the patient during this hospitalization. Time Spent Total Floor Time (mins): 27 Face to Face Time (mins): 13 >50% Time in Counseling or Coordination of Care: Yes (d/w RN) Attestation Collaborating MD Comments: To help prompt me to consider important information that might be impacting today's encounter and assessment, information from prior notes written by myself or my colleagues may have been "brought forward" into today's note. My signature on this note, however, is an attestation that I personally performed the exam, history, and/or decision-making noted today, and, unless otherwise indicated, the interactions with patient, family, and staff as well as the review of records all occurred today. I also attest that the listed assessment and stated plan reflect my best clinical judgment today based on the combination of historical information, prior notes, and today's exam/ interactions. When time spent is documented, it refers only to time spent today by the signer, or if indicated, combined time spent today by collaborating physician/nurse practitioner.
[2018-05-04] MEDS: QUEtiapine 100 MG Tablet PO SCH (17:23)
[2018-05-04] MEDS: LORazepam 1 MG Tablet PO SCH (17:23)
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
== END 2018-05-04 06:30 | disposition hospice, inpatient (51) ==
LOC: NEDAMB 09:51 → NEDA 19:16 → H4EA 20:34
PROVIDERS: ADMIT Psychiatry & Neurology Psychiatry; ATTEND Psychiatry & Neurology Psychiatry
DX: K86.1 Other chronic pancreatitis; F10.10 Alcohol abuse, uncomplicated; Z68.1 Body mass index [BMI] 19.9 or less, adult; Z78.1 Physical restraint status; Z87.891 Personal history of nicotine dependence; R62.7 Adult failure to thrive; Z51.5 Encounter for palliative care; Z79.891 Long term (current) use of opiate analgesic; Z66 Do not resuscitate; G20 Parkinson's disease; F41.9 Anxiety disorder, unspecified; R64 Cachexia; G89.4 Chronic pain syndrome; Z79.899 Other long term (current) drug therapy; F23 Brief psychotic disorder; Z91.5 Personal history of self-harm; F02.81 Dementia in other diseases classified elsewhere, unspecified severity, with behavioral disturbance